=== PATIENT | female | born 1990 | race Caucasian/White ===

== ENCOUNTER 2020-10-01 06:26 | Emergency (ER) | payer BC, OTHER ==
[~2020-10-01] VITALS: Ht 172.7 cm; Wt 90.7 kg
--- NOTE | 2020-10-01 06:41 | NUR ---
PRESENTED TO THE ER FOR C/O R SIDED ABD PAIN, + NAUSEA, - VOMITING OR DIARRHEA. LBM: YESTERDAY, LMP: YESTERDAY. VSS. AFEBRILE.
--- NOTE | 2020-10-01 06:48 | NUR ---
DR SEGURA AT BED SIDE
[2020-10-01 06:57] LABS: BILIRUBIN,URINE NEGATIVE (NEGATIVE); COLOR,URINE YELLOW (YELLOW); LEUKOCYTE ESTERASE ,URINE NEGATIVE (NEGATIVE); NITRITE, URINE NEGATIVE (NEGATIVE); PROTEIN,URINE NEGATIVE (NEGATIVE); UGLUCOSE NEGATIVE (NEGATIVE); UROBILINOGEN,URINE 0.2 EU/dL (0.2)
[2020-10-01] MEDS ORDERED: KETOROLAC TROMETHAMINE 15 MG/ML VIAL ONE (07:00)
[2020-10-01 07:04] LABS: BASOPHILS # (AUTO) 0.1 /CMM (0.0-0.2); BASOPHILS % (AUTO) 0.8 % (0.0-2.0); EOSINOPHILS % (AUTO) 1.9 % (0.0-6.0); HEMATOCRIT 43 % (33-45); HEMOGLOBIN 14.8 g/dL (11.5-14.8); LYMPHOCYTES # (AUTO) 1.9 /CMM (0.8-4.8); LYMPHOCYTES % (AUTO) 27.1 % (20.0-44.0); MEAN CORPUSCULAR HGB CONC 34 g/dl (31.0-36.0); MEAN CORPUSCULAR VOLUME 87 fL (82-100); MONOCYTES # (AUTO) 0.3 /CMM (0.1-1.30); MONOCYTES % (AUTO) 4.9 % (2.0-12.0); NEUTROPHILS # (AUTO) 4.6 /CMM (1.8-8.9); NEUTROPHILS % (AUTO) 65.3 % (43.0-81.0); PLATELET COUNT (AUTO) 289 /CMM (150-450); RED BLOOD CELL COUNT(AUTO) 4.92 MIL/uL (4.0-5.2); WHITE BLOOD COUNT (AUTO) 7.1 K/uL (4.3-11.0)
[2020-10-01] MEDS: KETOROLAC TROMETHAMINE INJ 30 MG/ML VIAL IV ONE (07:05)
[2020-10-01 07:25] LABS: BACTERIA,URINE None seen /HPF (None Seen); RBC,URINE 0-2 /HPF (0-2); SQUAMOUS EPITHELIAL CELL,UR Few /HPF (None Seen); WBC,URINE NONE SEEN /HPF (0-3)
[2020-10-01 07:35] LABS: ALBUMIN 4.2 g/dL (3.4-5.0); BILIRUBIN,DIRECT 0.1 mg/dL (0.0-0.2); BILIRUBIN,TOTAL 0.4 mg/dL (0.2-1.0); CALCIUM, SERUM 9.2 mg/dL (8.5-10.1); CREATININE 0.9 mg/dL (0.6-1.3); TOTAL PROTEIN, SERUM 7.9 g/dL (6.4-8.2)
[2020-10-01 07:40] LABS: POTASSIUM 3.9 mmol/L (3.5-5.1)
[2020-10-01] MEDS ORDERED: IV NS 0.9% 250 ML IV ONE (07:56)
[2020-10-01] MEDS ORDERED: CT SWABBABLE VALVE TRANS SET 1 EA INFUS.SET MC ONE (07:56)
[2020-10-01] MEDS ORDERED: IOHEXOL-300 100 ML VIAL IV ONE (07:56)
--- NOTE | 2020-10-01 08:01 | NUR ---
wheeled patient to ct accompanied by sara
--- NOTE | 2020-10-01 08:15 | NUR ---
patient came back from ct
[2020-10-01 08:52] VITALS: BP 140/71
--- NOTE | 2020-10-01 08:54 | NUR ---
Patient discharged to home in stable condition. Written and verbal after care instructions given. Patient verbalizes understanding of instruction.IV removed. Catheter intact and site benign. Pressure and 4x4 applied to site. No bleeding noted.
== END 2020-10-01 08:53 | disposition home or self-care (01) ==
LOC: ER 06:26
DX: N83.201 Unspecified ovarian cyst, right side (principal); D18.00 Hemangioma unspecified site; Z60.2 Problems related to living alone
CPT/HCPCS: 36415; 80048-TC; 80076-TC; 81001; 83690-TC; 84703-TC; 85025-TC; J1885; J7050; Q9967